=== PATIENT | female | born 1955 | race Asian ===

== ENCOUNTER 2017-10-09 06:02 | Day surgery (SDC) | payer MEDICAID ==
[2017-10-09] MEDS ORDERED: CEFOTETAN 1 GM IVPB ONE (06:03)
[2017-10-09] MEDS ORDERED: BUPIVACAINE 0.75% W/EPI MPF 30ML VIAL IVP ONE (06:03)
[2017-10-09] MEDS ORDERED: PROPOFOL 10 MG/ML VIAL IV ONE (06:03)
[2017-10-09] MEDS ORDERED: FENTANYL PF 100MCG/2ML VIAL IV ONE (06:03)
[2017-10-09] MEDS ORDERED: GELATIN SPONGE,ABSORBABLE 1 EACH SPONGE TP ONE (06:03)
[2017-10-09] MEDS ORDERED: EPHEDRINE SULFATE 50 MG/ML ML IV ONE (06:03)
[2017-10-09] MEDS ORDERED: BUPIVACAINE LIPOSOME 266MG/20ML VIAL IV ONE (06:03)
[2017-10-09] MEDS ORDERED: ACETAMINOPHEN 1,000 MG/100 ML BTL IV ONE (06:03)
[2017-10-09] MEDS ORDERED: *PACU ONLY* KETAMINE HCL 10 MG/ML (20ML) VIAL IV ONE (06:03)
[2017-10-09] MEDS ORDERED: SEVOFLURANE 250 ML INH ONE (06:03)
[2017-10-09] MEDS ORDERED: DIBUCAINE 30 GM TUBE TOP ONE (06:03)
[2017-10-09] MEDS ORDERED: 0.9 % SODIUM CHLORIDE 100ML BAG IV ONE (06:03)
[2017-10-09] MEDS ORDERED: CLINDAMYCIN 600MG/50ML PREMIX 600 MG/50 ML BAG IVPB ONE (06:03)
--- NOTE | 2017-10-09 14:10 | Operative Note ---
DATE OF SURGERY: 10/09/2017 Surgeon: Michael Gonzales DO PREOPERATIVE DIAGNOSIS: Grade 4 prolapsed thrombosed hemorrhoids. POSTOPERATIVE DIAGNOSIS: Grade 4 prolapsed thrombosed hemorrhoids. OPERATION: Internal and external hemorrhoidectomy. Indication: The patient is a 61-year-old female whom I saw in the clinic on Monday. Apparently, she works at a [employer] and was engaging in anal intercourse and developed these hemorrhoids afterwards. On exam, she did have grade 4 prolapsed thrombosed hemorrhoids. We did discuss hemorrhoidectomy. Risks, benefits, and alternatives were discussed. Risks include bleeding, infection, acute or chronic pain, incontinence, anal stricture, and she understood this fully. PROCEDURE: Thereafter, consent was signed and questions answered. She was taken to the operating room and placed in a supine position. General anesthesia was administered per the department of anesthesia. The patient was rotated into the lithotomy position. Her perianal region was prepped and draped in the usual fashion. At this time, a 4-quadrant block was done with 0.25% Sensorcaine with epinephrine. A digital rectal exam was done which revealed no internal masses. A bivalved speculum was then placed. There were 3 main complexes. Each one was grasped with a Romano clamp and taken off at the level of the sphincter muscle with the Kalyan harmonic. One of the pedicles was larger in nature and it was suture ligated with 2-0 Vicryl. This was taken down to the anal verge. At this time, Exparel was used to do a 4-quadrant anal block. Lidocaine ointment and packing were placed. She tolerated the procedure well. CC: Mehdi GARNICA
== END 2017-10-09 08:47 | disposition home or self-care (01) ==
LOC: SUR 06:02
PROVIDERS: ATTEND Surgery
DX: K64.3 Fourth degree hemorrhoids (principal)
CPT/HCPCS: 93005; 93010; J3490